=== PATIENT | male | born 2005 | race Two or more races ===

== ENCOUNTER 2024-05-23 11:44 | Emergency (ER) | payer MEDICAID ==
[2024-05-23 12:11] VITALS: BP 136/71; O2SAT 97
--- NOTE | 2024-05-23 12:22 | ED Physician Documentation ---
PD HPI LOWER EXT INJURY - Stated complaint Stated Complaint: LT ANKLE INJURY - Chief complaint Chief Complaint: Ext Problem - History obtained from History obtained from: Patient (He was giving someone a piggyback ride yesterday and inverted his left ankle and now cannot walk or bear weight. No other injuries.) PD PAST MEDICAL HISTORY - Past Medical History Past Medical History: No - Past Surgical History Past Surgical History: Yes General: Appendectomy - Allergies Allergies/Adverse Reactions: Allergies Allergy/AdvReac Type Severity Reaction Status Date / Time No Known Drug Allergies Allergy Verified 05/23/24 12:01 - Social History Does the pt smoke?: Yes Smoking Status: Current every day smoker Does the pt drink ETOH?: Yes Does the pt have substance abuse?: Yes Substance Use and Type: Marijuana - Immunizations Immunizations are current?: No - POLST Patient has POLST: No PD ED PE NORMAL - Vitals Vital signs reviewed: Yes - General General: Alert and oriented X 3, No acute distress - Extremities Extremities: Other (Tender and swollen over both malleoli of the left ankle. No proximal fibular or foot tenderness. There is bruising laterally.) - Neuro Neuro: Alert and oriented X 3 Results - Vitals Vitals: Vital Signs - 24 hr 05/23/24 05/23/24 12:01 12:58 Temperature 36.2 C L 36.2 C L Heart Rate 82 82 Respiratory 16 16 Rate Blood Pressure 136/71 H 136/71 H O2 Saturation 97 97 Oxygen O2 Source Room air PD Medical Decision Making - ED course ED course: 18-year-old with ankle sprain versus fracture. X-ray negative to me. Placed in an Aircast up on crutches. He declined further needs. Departure - Departure Disposition: 01 Home, Self Care Clinical Impression: Sprain of left ankle Condition: Good Record reviewed to determine appropriate education?: Yes Instructions: ED Sprain Ankle W X Ray Comments: Follow-up with your doctor for repeat exam in about a week if not improved. Return for new or worsening symptoms. Tylenol and/or ibuprofen as needed per package instructions for pain. You can ice it as well. Forms: PCP List Discharge Date/Time: 05/23/24 13:00
[2024-05-23] MEDS: IBUPROFEN 800 MG TABLET PO STA (12:33)
--- NOTE | 2024-05-23 12:52 | XRAY Report ---
PROCEDURE: Ankle 3+V LT INDICATIONS: ankle inj TECHNIQUE: 3 views of the ankle were acquired. COMPARISON: None. FINDINGS: Bones: No fractures or dislocations. Ankle mortise is normally aligned. No suspicious bony lesions . Soft tissues: No tibiotalar joint effusion. Achilles tendon appears normal. Moderate lateral malle olus soft tissue swelling. IMPRESSION: Moderate lateral malleolar soft tissue swelling without underlying fracture or dislocation or substan tial joint effusion. If there is persistent clinical concern for a radiographically occult fracture, recommend immobilizat ion and repeat imaging in 10 to 14 days. Reviewed by: Joshua Tillman MD on 05/23/2024 11:50 AM SHIMON Approved by: Joshua Tillman MD on 05/23/2024 11:50 AM SHIMON Station ID: [id number]
== END 2024-05-23 13:00 | disposition home or self-care (01) ==
LOC: ED 11:44
DX: S93.402A Sprain of unspecified ligament of left ankle, initial encounter (principal); X50.0XXA Overexertion from strenuous movement or load, initial encounter; Y93.01 Activity, walking, marching and hiking; F17.200 Nicotine dependence, unspecified, uncomplicated
CPT/HCPCS: 73610; 99283; A9270